=== PATIENT | female | born 1975 | race Caucasian/White ===

== ENCOUNTER 2020-10-31 22:31 | Emergency (ER) | payer OTHER ==
[2020-10-31 22:40] VITALS: BP 118/76; PULSE 83; TEMP 98.1; BMI 32.1
[2020-11-01] MEDS ORDERED: ACETAMINOPHEN 325 MG TABLET (FP) PO ONE (00:07)
[2020-11-01] MEDS ORDERED: IBUPROFEN 600 MG TABLET (FP) PO ONE ×2 (00:07→00:17)
[2020-11-01] MEDS ORDERED: ACETAMINOPHEN 325 MG TABLET (FP) ONE (00:16)
== END 2020-11-01 00:45 | disposition home or self-care (01) ==
LOC: JER 22:31
DX: S99.922A Unspecified injury of left foot, initial encounter (principal)
CPT/HCPCS: 73630-TC-LT; 73660-TC-LT-FY; 99283-25

== ENCOUNTER → 2022-11-06 | Day surgery (SDC) | payer OTHER | END | disposition home or self-care (01) | LOC: JRADUS-SUR 08:26 | PROVIDERS: ATTEND Family Medicine Geriatric Medicine | PROC: 0H9T3ZX Drainage of Right Breast, Percutaneous Approach, Diagnostic (ICD-10-PCS; principal; 2022-11-06) | DX: D24.1 Benign neoplasm of right breast (principal); N60.21 Fibroadenosis of right breast | CPT/HCPCS: 19083; 87899; 88305-TC; 88341-TC; 88342-TC; A4648 ==